=== PATIENT | female | born 1990 | race Caucasian/White ===

== ENCOUNTER → 2018-06-10 | Outpatient (CLI) | payer OTHER ==
[2018-06-10 11:05] LABS: HCG,Quantitative Serum 100.5 mIU/mL
[2018-06-10 13:26] LABS: Albumin 3.8 g/dL (3.5-5.0); Bilirubin, Delta 0.3 mg/dL (0.0-0.2); Bilirubin,Unconjugated 0.1 mg/dL (0.0-1.1); Total Bilirubin 0.4 mg/dL (0.2-1.3); Total Protein 6.9 g/dL (6.3-8.2)
== END | disposition home or self-care (01) ==
LOC: LABWHC1 09:35
PROVIDERS: ATTEND Obstetrics & Gynecology
DX: Z34.00 Encounter for supervision of normal first pregnancy, unspecified trimester (principal)
CPT/HCPCS: 36415; 80076; 84702

== ENCOUNTER → 2018-06-10 | Outpatient (CLI) | payer OTHER ==
[~2018-06-10] MED LIST: METHOTREXATE SODIUM (PF) 25 MG/ML 2 ML VIAL IM ONE
[2018-06-10 14:21] VITALS: BP 129/83; PULSE 78; RESP 16; TEMP 98.6
[2018-06-10] MEDS: METHOTREXATE SODIUM (PF) 25 MG/ML 2 ML VIAL IM ONE (14:50)
== END | disposition home or self-care (01) ==
LOC: PROCWHC3 12:35
DX: O00.90 Unspecified ectopic pregnancy without intrauterine pregnancy (principal)
CPT/HCPCS: 96402

== ENCOUNTER 2019-09-25 14:53 | Outpatient (CLI) | payer OTHER ==
[2019-09-25 16:53] VITALS: BP 134/90; PULSE 105; RESP 16; TEMP 97.1
--- NOTE | 2019-09-27 07:32 | P.MSEPDOC ---
Presenting Problems - Arrival Data Date of Arrival on Unit: 09/25/19 Time of Arrival on Unit: 14:53 Mode of Transport: Ambulatory - Complaint OB-Reason for Admission/Chief Complaint: Possible Onset of Labor Medical History - Information : 2 Para: 0 Term: 0 : 0 Abortions: Spontaneous or Elective: 0 Number of Living Children: 0 - Gestational Age Gestational Age by ANDER (wks/days): 38 Weeks and 1 Days - History Complications: GBS+ Review of Systems - Review of Systems Constitutional: No problems Breast: No problems ENT: No problems Cardiovascular: No problems Respiratory: No problems Gastrointestinal: No problems Genitourinary: No problems Musculoskeletal: No problems Neurological: No problems Skin: No problems Vital Signs - Temperature Temperature: 97.1 F Temperature Source: Temporal Artery Scan - Pulse Pulse Oximetery Pulse Rate: 105 Pulse Assessment Method: Pulse Oximetry - Respirations Respiratory Rate: 16 Oxygen Delivery Method: Room Air - Blood Pressure Sitting Blood Pressure: 134/90 Blood Pressure Mean: 104 Blood Pressure Source: Automatic Cuff Medical Screen Scoring (Pre) - Cervical Exam Dilation: 1-3 cm = 1 Effacement: More than 50% = 2 Membranes: Intact - Uterine Contractions Frequency: > 5 minutes apart = 1 Duration: > 40 seconds = 2 Intensity: N/A - Maternal Vital Signs Maternal Temperature: N/A Maternal Blood Pressure: N/A Signs of Preeclampsia: N/A Maternal Respirations: N/A - Maternal Trauma Maternal Trauma: N/A - Assessment - Baby A Baseline FHR: 135 Heart Rate - NICHD Category: Category I (Normal) = 0 NST: Reactive Position: N/A Station: N/A - Total Score - Baby A Total Score - Baby A: 6 - Total Score - Baby B Total Score - Baby B: 6 - Total Score - Baby C Total Score - Baby C: 6 - Level of Risk - Baby A Level of Risk - Baby A: Medium (6-9) - Level of Risk - Baby B Level of Risk - Baby B: Medium (6-9) - Level of Risk - Baby C Level of Risk - Baby C: Medium (6-9) Physician Notification (Pre) - Physician Notified Physician Notified Date: 09/25/19 Physician Notified Time: 15:45 New Order Received: Yes - Notification Comment Comment: Okay to discharge patient home with instructions if cervix remains unchanged, if any changes call physician with report. Disposition - Disposition OB Disposition: Discharge to home, Written follow up instructions reviewed Discharge Date: 09/25/19 Discharge Time: 16:21 I agree with the RN Medical Screening Exam: Yes Risk & Benefit of care provided described in d/c instruction: Yes Diagnosis: FALSE LABOR AT OR AFTER 37 COMPLETED WEEKS OF GESTATION
== END 2019-09-25 16:21 | disposition home or self-care (01) ==
LOC: FBPOP 14:53
PROVIDERS: ATTEND Obstetrics & Gynecology
DX: O47.1 False labor at or after 37 completed weeks of gestation (principal); Z3A.38 38 weeks gestation of pregnancy
CPT/HCPCS: 59025; 99213

== ENCOUNTER 2019-09-26 02:35 | Inpatient (IN) | payer OTHER ==
[2019-09-26 03:39] LABS: Basophils % (A) 0 %; Eosinophils # (A) 0.1 k/uL (0-0.7); Eosinophils % (A) 1 %; HCT 35.2 % (34.0-46.0); HGB 11.7 gm/dL (11.4-16.0); Lymphocytes % (A) 17 %; MCHC 33.3 g/dL (31.0-37.0); MCV 90.1 fL (80.0-100.0); Mean Platelet Volume 7.9; Monocytes # (A) 0.7 k/uL (0-1.0); Monocytes % (A) 6 %; Neutrophils # (A) 8.8 k/uL (1.3-7.7); Neutrophils % (A) 74 %; Platelet Count 236 k/uL (150-450); RDW 13.7 % (11.5-15.5); WBC 11.8 k/uL (3.8-10.6)
[2019-09-26 03:48] LABS: ALT 16 U/L (4-34); AST 23 U/L (14-36); African American GFR (CKD) >90 (>60 ml/min/1.73 sqM); Blood Urea Nitrogen 11 mg/dL (7-17); LDH 332 U/L (313-618); Non-African American GFR(CKD) >90 (>60 ml/min/1.73 sqM); Uric Acid 4.9 mg/dL (3.7-7.4)
[2019-09-26 04:19] LABS: Appearance,Urine Cloudy (Clear); Bacteria,Urine Few /hpf; Bilirubin,Urine Negative (Negative); Blood,Urine Moderate (Negative); Color,Urine Yellow; Glucose,Urine (UA) Negative (Negative); Ketones,Urine Negative (Negative); Leukocyte Esterase,Urine Trace (Negative); Mucus,Urine Rare /hpf; Nitrite,Urine Negative (Negative); Protein,Urine Trace (Negative); RBC,Urine 6 /hpf (0-5); Specific Gravity,Urine 1.026 (1.001-1.035); Squamous Epithelial Cell,Urine 7 /hpf (0-4); Urobilinogen,Urine <2.0 mg/dL (<2.0); WBC,Urine 5 /hpf (0-5)
[2019-09-26] MEDS ORDERED: LIDOCAINE 0.5% (PF) 5 MG/ML (50 ML SDV) SQ PRN (04:52)
[2019-09-26] MEDS ORDERED: OXYTOCIN 10 UNIT/ML 1 ML VIAL IM PRN (04:52)
[2019-09-26] MEDS ORDERED: TERBUTALINE 1 MG/ML VIAL SQ PRN (04:52)
[2019-09-26] MEDS ORDERED: CARBOPROST TROMETHAMINE 250 MCG/ML 1 ML AMP IM PRN (04:52)
[2019-09-26] MEDS ORDERED: AMPICILLIN 2,000 MG in SODIUM CHLORIDE 0.9% 100 ML IVPB STA (04:52)
[2019-09-26] MEDS ORDERED: METHYLERGONOVINE 0.2 MG/ML 1 ML AMP IM PRN (04:52)
[2019-09-26] MEDS ORDERED: LABETALOL 200 MG TAB PO STA (04:54)
[2019-09-26] MEDS ORDERED: BUTORPHANOL 1 MG/ML 1 ML VIAL IV PRN (04:55)
[2019-09-26] MEDS ORDERED: OXYTOCIN 30 UNITS/500 ML NS 30 UNIT in SALINE 1 500ML.BAG IV SCH (05:00)
[2019-09-26] MEDS: LACTATED RINGERS 1,000 ML IV SCH ×3 (05:11→15:04)
[2019-09-26 06:06] LABS: Basophils # (A) 0.1 k/uL (0-0.2); Basophils % (A) 1 %; Eosinophils # (A) 0.1 k/uL (0-0.7); Eosinophils % (A) 1 %; HCT 35.9 % (34.0-46.0); Lymphocytes # (A) 1.8 k/uL (1.0-4.8); Lymphocytes % (A) 15 %; MCH 30.1 pg (25.0-35.0); MCHC 33.5 g/dL (31.0-37.0); MCV 89.9 fL (80.0-100.0); Mean Platelet Volume 8.6; Monocytes # (A) 0.7 k/uL (0-1.0); Monocytes % (A) 6 %; Neutrophils # (A) 9.2 k/uL (1.3-7.7); Neutrophils % (A) 77 %; Platelet Count 264 k/uL (150-450); RDW 13.8 % (11.5-15.5); WBC 11.9 k/uL (3.8-10.6)
[2019-09-26] MEDS ORDERED: ONDANSETRON 4 MG/2 ML VIAL IVP STA (06:56)
[2019-09-26] MEDS ORDERED: ROPIVACAINE 5MG/ML 20ML VIAL ONE (08:39)
[2019-09-26] MEDS ORDERED: SODIUM CHLORIDE 0.9% 100 ML BAG ONE (08:39)
[2019-09-26] MEDS ORDERED: fentaNYL (PF) 50 MCG/ML 5 ML AMP ONE (08:39)
--- NOTE | 2019-09-26 08:47 | P.HPOB ---
History of Present Illness H&P Date: 09/26/19 Chief Complaint: Contractions This is a 28-year-old female 2 para 0 with an estimated date of confinement of 10/08/2019, estimated gestational age of 38-2/7 weeks, who presents to labor and delivery with complaints of contractions that began yesterday morning and became stronger through the day. She was seen in triage earlier in the afternoon yesterday and did not make any cervical change within an hour period she returns with stronger and more regular contractions. Upon return to triage, her blood pressures were also significantly elevated in the 150 to 160s over 90s. Labs were drawn and all preeclampsia labs were negative. She had trace protein in her urine. Her cervix was minimally changed but she was noted to be haroldo every 3 minutes. Therefore the decision is made to admit for gestational hypertension and early active labor. She denies any rupture of membranes. Her course has been with Dr. Dickerson and has been uncomplicated per patient. labs: GC/commodious/Trichomonas-negative Hepatitis B surface antigen-negative RPR-nonreactive Rubella-immune Blood type-O- Antibody screen-negative Hemoglobin-12.5 Random glucose-82 Obstetrical ultrasound-normal anatomy One hour Glucola-152 Three-hour Glucola-2 hour value is high but all other values are normal. Group B streptococcus-positive Obstetrical history: . History of 1 ectopic . Status post methotrexate for that . Gynecologic history: No history of sexually transmitted diseases Social history: She is single. She works as a dispatcher. Review of Systems Constitutional: Denies chills, Denies fever Eyes: denies blurred vision, denies pain Ears, nose, mouth and throat: Denies headache, Denies sore throat Cardiovascular: Denies chest pain, Denies shortness of breath Respiratory: Denies cough Gastrointestinal: Reports abdominal pain (Contractions) Genitourinary: Reports pelvic pain, Reports Musculoskeletal: Reports low back pain Integumentary: Denies pruritus, Denies rash Neurological: Denies numbness, Denies weakness Psychiatric: Denies anxiety, Denies depression Past Medical History Past Medical History: No Reported History History of Any Multi-Drug Resistant Organisms: None Reported Past Surgical History: Cholecystectomy, Orthopedic Surgery Additional Past Surgical History / Comment(s): jung knee surgery Past Anesthesia/Blood Transfusion Reactions: Postoperative Nausea & Vomiting (PONV) Past Psychological History: No Psychological Hx Reported Smoking Status: Never smoker Past Alcohol Use History: None Reported Past Drug Use History: None Reported - Past Family History Mother Family Medical History: No Reported History Medications and Allergies Home Medications Medication Instructions Recorded Confirmed Type 78/Iron/Folate 1/Dha 1 tab PO ONCE 09/05/19 09/26/19 History [Prenate Dha Softgel] Allergies Allergy/AdvReac Type Severity Reaction Status Date / Time No Known Allergies Allergy Verified 09/26/19 02:51 Exam Osteopathic Statement: *. No significant issues noted on an osteopathic structural exam other than those noted in the History and Physical/Consult. Vital Signs Temp Pulse Resp BP Pulse Ox 09/26/19 04:54 96.6 F L 102 H 16 161/101 98 09/26/19 02:52 96.6 F L 106 H 16 177/93 Intake and Output 09/25/19 09/26/19 09/26/19 22:59 06:59 14:59 Other: # Voids 2 Weight 111.584 kg HEENT: Within normal limits Heart: Regular rate and rhythm Lungs: Clear to auscultation bilaterally Abdomen: Cervix: Initially in triage was 3 cm/70%/-2 station Heart tones: Are reactive with category 1 tracing Contractions: Every 3 minutes External use: Negative Homans Results Result Diagrams: 09/26/19 05:12 09/26/19 03:27 Abnormal Lab Results - Last 24 Hours (Table) 09/26/19 09/26/19 09/26/19 Range/Units 03:31 04:05 05:12 WBC 11.8 H 11.9 H (3.8-10.6) k/uL Neutrophils # 8.8 H 9.2 H (1.3-7.7) k/uL Urine Appearance Cloudy H (Clear) Urine Protein Trace H (Negative) Urine Blood Moderate H (Negative) Ur Leukocyte Esterase Trace H (Negative) Urine RBC 6 H (0-5) /hpf Ur Squamous Epith Cells 7 H (0-4) /hpf Urine Bacteria Few H (None) /hpf Urine Mucus Rare H (None) /hpf Assessment and Plan (1) 38 weeks gestation of Current Visit: Yes Status: Acute Code(s): Z3A.38 - 38 WEEKS GESTATION OF SNOMED Code(s): 21605337 (2) Gestational hypertension Current Visit: No Status: Acute Code(s): O13.9 - GESTATIONAL HTN W/O SIGNIFICANT PROTEINURIA, UNSP TRIMESTER SNOMED Code(s): 928633534 (3) Group B Streptococcus carrier, +RV culture, currently Current Visit: Yes Status: Acute Code(s): O99.820 - STREPTOCOCCUS B CARRIER STATE COMPLICATING SNOMED Code(s): 0138314773117 Plan: Will admit for early active labor and gestational hypertension. Antibiotic prophylaxis for group B streptococcus. Expectant management with pain medication as needed. One dose of labetalol was given orally in triage. Will monitor blood pressures in labor.
[2019-09-26] MEDS: AMPICILLIN 1,000 MG in SODIUM CHLORIDE 0.9% 50 ML IVPB SCH ×2 (09:32→13:59)
[2019-09-26] MEDS ORDERED: ONDANSETRON 4 MG/2 ML VIAL ONE (15:18)
[2019-09-26] MEDS ORDERED: LIDOCAINE HCL/PF 20 MG/ML 10 ML AMP ONE (15:18)
[2019-09-26] MEDS ORDERED: OXYTOCIN 10 UNIT/ML 1 ML VIAL ONE (15:18)
[2019-09-26] MEDS ORDERED: fentaNYL (PF) 50 MCG/ML 2 ML AMP ONE (15:18)
[2019-09-26] MEDS ORDERED: diphenhydrAMINE 50 MG/ML 1 ML VIAL ONE (15:18)
[2019-09-26] MEDS ORDERED: MORPHINE SULFATE (PF) 0.3 MG/0.3 ML SYR ONE (15:18)
[2019-09-26] MEDS ORDERED: ceFAZolin 1,000 MG VIAL ONE (15:18)
[2019-09-26] MEDS ORDERED: KETOROLAC 30 MG/ML 1 ML VIAL ONE (15:18)
[2019-09-26] MEDS ORDERED: CITRIC ACID-SODIUM CITRATE 15 ML CUP PO ONE (15:20)
[2019-09-26] MEDS ORDERED: LACTATED RINGERS 1,000 ML IV ONE (15:20)
[2019-09-26] MEDS ORDERED: diphenhydrAMINE 50 MG CAP PO PRN (17:23)
[2019-09-26] MEDS ORDERED: NALOXONE 0.4 MG/ML 1 ML VIAL IV PRN (17:23)
[2019-09-26] MEDS ORDERED: diphenhydrAMINE 25 MG CAP PO PRN (17:23)
[2019-09-26] MEDS ORDERED: ZOLPIDEM 5 MG TAB PO PRN (17:23)
[2019-09-26] MEDS ORDERED: diphenhydrAMINE 50 MG/ML 1 ML VIAL IVP PRN ×2 (17:23)
[2019-09-26] MEDS ORDERED: METOCLOPRAMIDE 5 MG/ML 2 ML VIAL IVP PRN (17:23)
[2019-09-26] MEDS ORDERED: ACETAMINOPHEN TAB 325 MG TAB PO PRN (17:23)
[2019-09-26] MEDS ORDERED: ONDANSETRON 4 MG/2 ML VIAL IVP PRN (17:23)
--- NOTE | 2019-09-26 17:26 | P.OP ---
Date of Procedure: 09/26/19 Preoperative Diagnosis: intrauterine at term: Manuela to descend/arrest of labor: Cephalopelvic disproportion/asynclitism left occiput transverse position Postoperative Diagnosis: same with significant blood noted in the urine Procedure(s) Performed: primary low transverse section with retrograde filling of the bladder Anesthesia: epidural Surgeon: Spencer Vincent Household Appliance Repairer #1: Richar Ramey Estimated Blood Loss (ml): 700 IV fluids (ml): 1,000 Urine output (ml): 120 Pathology: other (placenta) Condition: stable Disposition: floor Operative Findings: male significant capat noted delivered from left occiput transverse asynclitic position from primary . Blood noted in the urine following deliver the head while I suspected trauma to the bladder from below the baby's head was, retrograde filling the bladder with sterile milk was performed risks/benefits/alternatives to a primary were discussed with patient in detail. She was offered the possibility of continued to push after 45 minutes of pushing the baby's head had not descended really into the vagina and there was a significant amount of capat noted across the scalp. We did also discuss that there was increased risk for bleeding and other competitions due to how low the baby was but realistically unfortunately, a section was unfortunately likely the only way that this baby was going to be delivered. Description of Procedure: patient was taken to the operating suite where an epidural anesthetic was found be adequate. She was prepped and draped in normal sterile fashion and placed in dorsal supine position with leftward tilt. Initially a Pfannenstiel skin incision was made and this incision was then carried through to the underlying layer of the fascia with the second knife. Fascia was then nicked in the midline and this opening was extended laterally with De Dios scissors. Superior and inferior aspect of this incision were then grasped tented up and bluntly and sharply dissected off the rectus muscles. Rectus muscles were then divided the midline and blunt dissection the peritoneum was made. This opening was then extended superiorly and inferiorly with good visualization of both bowel bladder. Bladder blade was then placed bladder flap identified and with Metzenbaums sponsors and bluntly dissected out of the operative field. Knife was then used to incise uterus this incision was fully developed with hemostat and then extended bluntly. Baby's head was very low in the pelvis due to the fact she pushing there was significant edema and It. Once baby was head was brought out of the pelvis it was delivered from left occiput transverse position and mouth nares were bulb suctioned. Once interim posterior shoulders were easily delivered umbilical cord was clamped cut usual fashion an nursery personnel was present and assumed care. Placenta was then delivered intact and Pitocin was added to the IV. Uterus was then exteriorized cleared of clots and debris and closed in 2 layers with 0 Vicryl suture. The incision was extended deeply into the cervical region of the uterus but bleeding was relatively to very well controlled considering. The boundaries of the opening were delineated on multiple occasions using Cortés retractors and the initial layer of closure was done in a running locking fashion. Second layer was then re- imbricated for the first layer. Once excellent hemostasis was felt obtained across all layers. Blood and debris was suctioned from the posterior cul-de-sac and uterus was reinserted into the abdomen. Once this was completed sterile milk was used to retrograde fill the bladder. Good integrity was noted across the bladder we did manipulate bladder some during this process to verify that no spillage or leaking of urine was noted. Postoperatively her urine appears to be clearing. Once this process was completed the peritoneum and rectus muscles were reapproximated gently and fascial layer was closed with 0 Vicryl suture. One layer of 3-0 Vicryl placed in the deep subcuticular tissues to reapproximate the skin and close the space and the skin was then closed with rekha. Sponge, lap, needle counts were all correct 2. Patient was then taken to the recovery room in stable and satisfactory condition.
[2019-09-26] MEDS ORDERED: LACTATED RINGERS 1,000 ML IV SCH (17:30)
[2019-09-27] MEDS ORDERED: Rhogam IMMUNE GLOBULIN 1,500 UNIT/1 ML IM ONE (00:41)
[2019-09-27 08:10] LABS: Basophils % (A) 0 %; Eosinophils % (A) 0 %; HCT 31.5 % (34.0-46.0); Lymphocytes # (A) 1.9 k/uL (1.0-4.8); Lymphocytes % (A) 11 %; MCH 28.6 pg (25.0-35.0); MCHC 31.6 g/dL (31.0-37.0); MCV 90.8 fL (80.0-100.0); Mean Platelet Volume 7.5; Monocytes # (A) 1.1 k/uL (0-1.0); Monocytes % (A) 6 %; Neutrophils # (A) 13.8 k/uL (1.3-7.7); Neutrophils % (A) 81 %; Platelet Count 224 k/uL (150-450); RBC 3.47 m/uL (3.80-5.40); RDW 14.2 % (11.5-15.5)
[2019-09-27 08:18] LABS: HGB 9.9 gm/dL (11.4-16.0)
--- NOTE | 2019-09-27 08:18 | P.PNOBGPC ---
Subjective - Subjective Principal diagnosis: postop day 1 Interval history: Rowan is doing very well this morning. She is ambulating, voiding and tolerating her diet. She voices no complaints. We'll advance the diet today. All questions are answered for her at this time. No major changes to care today. Patient reports: Reports appetite normal, Reports voiding normally, Reports pain well controlled, Reports ambulating normally [place]: doing well Objective - Vital Signs Latest vital signs: Vital Signs Temp Pulse Resp BP Pulse Ox 09/27/19 07:52 98.8 F 112 H 16 122/71 97 09/27/19 07:50 112 H 09/27/19 04:28 98.2 F 118 H 18 124/72 09/27/19 01:46 98.3 F 116 H 18 122/72 09/27/19 01:00 98.0 F 118 H 18 122/72 09/26/19 23:08 98.2 F 118 H 18 122/72 09/26/19 21:08 98.2 F 118 H 20 122/78 98 09/26/19 20:08 98.2 F 115 H 20 118/72 98 09/26/19 18:20 97.6 F 121 H 18 127/75 100 09/26/19 17:49 122 H 18 139/68 100 09/26/19 17:19 98.6 F 117 H 18 141/81 99 09/26/19 17:04 135 H 18 143/87 100 09/26/19 16:49 130 H 18 144/86 99 09/26/19 16:34 127 H 18 136/82 09/26/19 16:19 97.4 F L 137 H 18 129/60 98 Intake and Output 09/26/19 09/27/19 09/27/19 22:59 06:59 14:59 Output Total 400 Balance -400 Output: Urine 400 Other: Voiding Method Indwelling Catheter # Voids 1 - Exam Lungs: bilateral: normal Chest: Normal S1, Normal S2 Extremities: Present: normal Abdomen: Present: normal appearance, soft. Absent: distention, tenderness Incision: Present: normal, dry, intact Uterus: Present: normal, firm
[2019-09-27] MEDS: IBUPROFEN 600 MG TAB PO PRN ×3 (08:37→23:18)
[2019-09-27] MEDS: SENNOSIDES-DOCUSATE SODIUM 1 EACH TAB PO SCH ×2 (09:06→23:19)
[2019-09-27 19:51] VITALS: RESP 18
[2019-09-28] MEDS: IBUPROFEN 600 MG TAB PO PRN ×2 (06:13→12:03)
--- NOTE | 2019-09-28 08:16 | P.DS ---
Providers Date of admission: 09/26/19 04:53 Expected date of discharge: 09/28/19 Attending physician: Smith Dickerson Primary care physician: Stated None - Discharge Diagnosis(es) (1) 38 weeks gestation of Current Visit: Yes Status: Acute (2) Gestational hypertension Current Visit: No Status: Acute (3) Group B Streptococcus carrier, +RV culture, currently Current Visit: Yes Status: Acute Hospital Course: This is a 28-year-old female 2 para 0 at 38-2/7 weeks who presented with contractions. She also was noted to have some elevated blood pressures on admission. Preeclampsia labs were negative. She did progress to complete dilation and then required a section for failure to progress. She underwent a primary section on 09/26/2019 and delivered a viable male with infant weight of 7 lbs. 8 oz. Postoperatively she did well. She is passing some flatus but no bowel movement. She is only using Motrin for pain. Vital signs are stable. Abdomen is soft with positive bowel sounds 4. Incision is clean dry and intact. Extremities show negative Homans. Impression is status post primary section postoperative day #2. Plan is to discharge home later today. Routine postoperative and instructions are given. She is advised to follow up with Dr. Dickerson in the office in approximately 1 week. She is advised to call the office if she has any further questions or concerns prior to her appointment time. She will be given a prescription for ibuprofen. She states she already has a breast pump at home. Procedures: Primary low transverse section on 09/26/2019 Patient Condition at Discharge: Stable Plan - Discharge Summary New Discharge Prescriptions: New Ibuprofen [Motrin] 600 mg PO Q6HR PRN #60 tab PRN Reason: Mild Pain Or Fever >= 100.5 No Action 78/Iron/Folate 1/Dha [Prenate Dha Softgel] 1 tab PO ONCE Discharge Medication List 78/Iron/Folate 1/Dha [Prenate Dha Softgel] 1 tab PO ONCE 09/05/19 [History] Ibuprofen [Motrin] 600 mg PO Q6HR PRN #60 tab 09/28/19 [Rx] Follow up Appointment(s)/Referral(s): Smith Dickerson MD [STAFF PHYSICIAN] - 1 Week Activity/Diet/Wound Care/Special Instructions: Instructions 1. Do not begin any exercise program for 3 weeks. 2. Do not resume sexual relations for 3 weeks or longer if uncomfortable. 3. You may take tub baths or showers at any time. 4. You may use tampons if desired after 3 weeks. 5. Keep the area of episiotomy (stitches) clean and dry. 6. If you are not nursing, wear a good fitting, supportive bra during the day and limit fluid intake for at least 1 week to prevent breast engorgement. 7. Call the office, [phone], within the next week to make appointment for your 6 week checkup if it has not already been made. 8. Report any of the following occurrences to the doctor promptly: a. Heavy, excessive bleeding b. Chills, fever c. Burning or frequency of urination d. Pain or redness and breasts if nursing e. Increasing pain or swelling in episiotomy (stitches). In addition to the above instructions, the following additional should be followed: 1. No heavy lifting or straining (exercising) until after 6 week checkup. 2. Keep abdominal incision clean and dry: You may wear a dressing if more comfortable. 3. Make office appointment for 10 days after going home or as instructed by her doctor. Discharge Disposition: HOME SELF-CARE
[2019-09-28] MEDS: SENNOSIDES-DOCUSATE SODIUM 1 EACH TAB PO SCH (09:51)
[2019-09-28 10:25] VITALS: BP 144/87; PULSE 104; TEMP 98.4
--- NOTE | 2019-09-28 19:31 | P.PN ---
Progress Note - Text 09/27 [id number] 28 yr old female s/p csection witjh a spinal anesthetic with duramorph for post op pain control.she was seen and evaluated for pain control, she has a vas of 1 with no c/o pruritis or n/v.
== END 2019-09-28 12:31 | disposition home or self-care (01) | DRG 788 ==
LOC: FBPOP 02:35 → 4FBP 04:53
PROVIDERS: ADMIT Obstetrics & Gynecology; ATTEND Obstetrics & Gynecology
PROC: 10D00Z1 Extraction of Products of Conception, Low, Open Approach (ICD-10-PCS; principal; 2019-09-26 15:38)
DX: O13.4 Gestational [pregnancy-induced] hypertension without significant proteinuria, complicating childbirth (principal); O33.9 Maternal care for disproportion, unspecified; O62.1 Secondary uterine inertia; O99.824 Streptococcus B carrier state complicating childbirth; Z3A.38 38 weeks gestation of pregnancy; Z37.0 Single live birth; Z79.899 Other long term (current) drug therapy; Z90.49 Acquired absence of other specified parts of digestive tract; Z98.890 Other specified postprocedural states
CPT/HCPCS: 59025; 81001; 82565; 82570; 83615; 84156; 84450; 84460; 84520; 84550; 85025; 85461; 86850; 86900; 86901; 99215